=== PATIENT | female | born 1935 | race African-American/Black ===

== ENCOUNTER 2017-09-06 10:00 | Day surgery (SDC) | payer MEDICARE, BC ==
--- NOTE | 2017-09-05 23:28 | Pre-Procedure Note/Attestation ---
Pre-Procedure Note/Attestation Complete Prior to Procedure Planned Procedure: left - Removal of cataract and placement of intraocular lens , left eye Procedure Narrative: Removal of cataract and placement of intraocular lens, left eye Indications for Procedure Pre-Operative Diagnosis: Cataract, combined, left eye Attestation I attest that I discussed the nature of the procedure; its benefits; risks and complications; and alternatives (and the risks and benefits of such alternatives ), prior to the procedure, with the patient (or the patient's legal sales representative printing paper). I attest that, if there was a reasonable possibility of needing a blood transfusion, the patient (or the patient's legal sales representative printing paper) was given the [place] [employer] standardized written summary, pursuant to the [place] Blood Safety Act ([place] Health and Safety Code # 1645, as amended). I attest that I re-evaluated the patient just prior to the surgery and that there has been no change in the patient's H&P, except as documented below: Richard Diggs MD Sep 05, 2017 23:28
[~2017-09-06] VITALS: Ht 154.9 cm; Wt 50.8 kg
[2017-09-06] VITALS (8 sets, daily range): BP systolic 123–150; BP diastolic 51–70
[~2017-09-06 10:00] MED LIST: Pred Forte 1% Opth Susp 1ml LEFT EYE ONE
[2017-09-06] MEDS ORDERED: ZANTAC150 MG ORAL (10:32)
[2017-09-06] MEDS ORDERED: ASPIR 8181 MG ORAL (10:33)
[2017-09-06] MEDS ORDERED: METFORMIN HCL500 M1 ORAL (10:34)
[2017-09-06] MEDS ORDERED: AMLODIPINE BESYL5 MG ORAL (10:35)
[2017-09-06] MEDS ORDERED: LOSARTAN-HCTZ1 EAC2 ORAL (10:36)
[2017-09-06] MEDS ORDERED: STOOL SOFTENER1 EAC3 PO (10:37)
[2017-09-06] MEDS ORDERED: Phenylephrine 10% Opth Soln 5ml ONE (10:44)
[2017-09-06] MEDS ORDERED: Cyclopentolate 1% Opth Sol 2ml ONE (10:44)
[2017-09-06] MEDS ORDERED: Ciprofloxacin Opth Soln 2.5ml ONE (10:44)
[2017-09-06] MEDS ORDERED: Akten 3.5% 1ml Btl ONE (10:44)
[2017-09-06] MEDS ORDERED: Pred Forte 1% Opth Susp 1ml ONE ×2 (10:45→12:12)
[2017-09-06] MEDS ORDERED: Tropicamide 1% Opth 15ml Soln ONE (10:45)
[2017-09-06] MEDS: Cyclopentolate 1% Opth Sol 2ml LEFT EYE SCH ×3 (10:56→11:29)
[2017-09-06] MEDS: Tropicamide 1% Opth 15ml Soln LEFT EYE SCH ×3 (10:56→11:29)
[2017-09-06] MEDS: Phenylephrine 10% Opth Soln 5ml LEFT EYE SCH ×3 (10:56→11:29)
[2017-09-06] MEDS: Ciprofloxacin Opth Soln 2.5ml LEFT EYE SCH ×3 (10:56→11:31)
[2017-09-06] MEDS: Akten 3.5% 1ml Btl LEFT EYE SCH ×3 (10:57→11:31)
[2017-09-06] MEDS ORDERED: EPINEPHrine 1mg/1ml Amp ONE (12:11)
[2017-09-06] MEDS ORDERED: Maxitrol Opth Oint 3.5gm ONE (12:12)
[2017-09-06] MEDS ORDERED: Fluorescein Strips ONE (12:12)
[2017-09-06] MEDS ORDERED: Carbachol 0.01% Op Soln 1.5ml vial ONE (12:12)
[2017-09-06] MEDS ORDERED: Lidocaine 4% Amp ONE (12:12)
[2017-09-06] MEDS ORDERED: Timolol 0.5% Op Soln 2.5ml ONE (12:12)
[2017-09-06] MEDS ORDERED: Lidocaine 1% MPF 10mg/ml 5ml ONE (12:12)
[2017-09-06] MEDS ORDERED: Dexamethasone 4mg/ml vial ONE (12:12)
[2017-09-06] MEDS ORDERED: BSS 500ml btl ONE (12:13)
[2017-09-06] MEDS ORDERED: BSS 15ml BTL ONE (12:13)
[2017-09-06] MEDS ORDERED: Povidone-Iodine 5% opth solution ONE (12:13)
[2017-09-06] MEDS ORDERED: Tetracaine 0.5% Opth 4ml Soln ONE (12:13)
[2017-09-06] MEDS ORDERED: Sodium Hyaluronate 10 mg/ml 0.85ml ONE (12:14)
[2017-09-06] MEDS ORDERED: Sterile Water Irrig 1000ml IRRIG ONE (12:30)
[2017-09-06] MEDS ORDERED: DiphenhydrAMINE 50mg/ml Inj ONE ×3 (12:30→13:43)
[2017-09-06] MEDS ORDERED: NS Irrig 1000ml ONE (12:30)
--- NOTE | 2017-09-06 12:42 | Anethesia Preoperative Eval ---
Anesthesia Pre-op PMH/ROS General Date of Evaluation: Sep 06, 2017 Anesthesiologist: Jose E ASA Score: ASA 2 Mallampati Score Class I : Soft palate, uvula, fauces, pillars visible Class II: Soft palate, uvula, fauces visible Class III: Soft palate, base of uvula visible Class IV: Only hard plate visible Mallampati Classification: Class II Surgeon: Dontae Diagnosis: Left cataract Surgical Procedure: Left cataract extraction with IOL Anesthesia History: none Family History: no anesthesia problems Allergies: Coded Allergies: MEPERIDINE (Verified Allergy, Intermediate, shortness of breath, 09/06/17) CODEINE (Verified Adverse Reaction, Intermediate, "stomach hurts", 09/06/17 ) Medications: see eMAR Past Medical History Cardiovascular: Reports: HTN; Denies: CAD, [place], valve dz, arrhythmia, other Pulmonary: Denies: asthma, COPD, BULMARO, other Gastrointestinal/Genitourinary: Reports: GERD; Denies: CRI, ESRD, other Neurologic/Psychiatric: Denies: dementia, CVA, depression/anxiety, TIA, other Endocrine: Reports: DM; Denies: hypothyroidism, steroids, other HEENT: Denies: cataract (L), cataract (R), glaucoma, [place] DEE-NI' (L), [place] DEE-NI' (R), other Hematology/Immune: Denies: anemia, DVT, bleeding disorder, other Musculoskeletal/Integumentary: Denies: OA, RA, DJD, DDD, edema, other PSxH Narrative: ALEK, appy, keyur Anesthesia Pre-op Phys. Exam Physician Exam Last Vital Signs Date Time Temp Pulse Resp B/P (MAP) Pulse Ox O2 Delivery O2 Flow Rate FiO2 09/06/17 10:58 98.7 63 18 150/70 99 Room Air 98.7 Constitutional: NAD Cardiovascular: RRR Respiratory: CTA Airway Exam Mallampati Score: Class II MO: full ROM: full Anesthesia Pre-op A/P Labs see chart Studies Pre-op Studies: EKG Risk Assessment & Plan Assessment: ASA II Plan: MAC Status Change Before Surgery: No Pre-Antibiotics Drug: N/A IVETTE PRYOR M.D. Sep 06, 2017 12:42
[2017-09-06] MEDS ORDERED: Midazolam 2mg/2ml Inj ONE (12:44)
[2017-09-06] MEDS ORDERED: LR 1000ml 1,000 ML IVLG SCH (12:49)
--- NOTE | 2017-09-06 12:50 | Immediate Post-Op Evaluation ---
Immediate Post-Op Evalulation Immediate Post-Op Evalulation Procedure: Left cataract extraction with IOL Date of Evaluation: Sep 06, 2017 Time of Evaluation: 13:34 IV Fluids: 200 Blood Products: 0 Estimated Blood Loss: 0 Urinary Output: 0 Blood Pressure Systolic: 137 Blood Pressure Diastolic: 57 Pulse Rate: 65 Respiratory Rate: 16 O2 Sat by Pulse Oximetry: 99 Temperature (Fahrenheit): 98.9 Pain Score (1-10): 0 Nausea: No Vomiting: No Complications 0 Patient Status: awake, reacts, patent, none Hydration Status: adequate Drug: N/A IVETTE PRYOR M.D. Sep 06, 2017 12:50
--- NOTE | 2017-09-06 12:51 | 48 Hour Post Anesthesia Eval ---
Post Anesthesia Evaluation Procedure: Left cataract extraction with IOL Date of Evaluation: Sep 06, 2017 Airway: patent Nausea: No Vomiting: No Pain Intensity: 0 Hydration Status: adequate Cardiopulmonary Status: at baseline Mental Status/LOC: patient returned to baseline Post-Anesthesia Complications: 0 Follow-up care needed: ready to discharge IVETTE PRYOR M.D. Sep 06, 2017 12:51
[2017-09-06] MEDS ORDERED: DiphenhydrAMINE 50mg/ml Inj IVP PRN (13:00)
[2017-09-06] MEDS ORDERED: Labetalol 5mg/ml 20ml vial IV PRN (13:00)
--- NOTE | 2017-09-06 13:33 | Discharge Instructions ---
Discharge Instructions Discharge Instructions Follow Up Orders Continue Prednisolone eye drops 1 drop to left eye 4 times a day Ciprofloxacin eye drops 1 drop to left eye 4 times a day Wait five minutes in between eye medications Wear eye shield at all times except to place eye drops Followup in Dr Diggs's office tomorrow For Congestive Heart Failure Reminder Report to your physician any weight gain of 5 pounds or more in one week. Richard Diggs MD Sep 06, 2017 13:32
--- NOTE | 2017-09-06 13:34 | Brief Operative Note ---
Immediate Post Operative Note Operative Note Pre-op Diagnosis: Cataract, combined, left eye Procedure: Phaco PC IOL, OS Use of vision blue for capsular staining Post-op Diagnosis: Combined Cataract, left eye Surgeon: Abram Diggs MD Anesthesiologist: Dr Uribe Anesthesia: local, MAC Specimen: none Complications: none Fluids: as per chart Implant(s) used?: Yes - maggie SA 60 AT 19.5 Richard Diggs MD Sep 06, 2017 13:34
--- NOTE | 2017-09-06 17:45 | Operative Note - Dictated ---
DATE OF OPERATION: 09/06/2017 SURGEON: Richard Diggs M.D. SECURED ENTRANCE MONITOR SURGEON: None. ANESTHESIOLOGIST: Dr. Uribe. ANESTHESIA: Local/standby/monitored anesthesia care. PREOPERATIVE DIAGNOSIS: Combined cataract, left eye. POSTOPERATIVE DIAGNOSIS: Combined cataract, left eye. PROCEDURE: 1. Phacoemulsification of cataract, left eye. 2. Placement of posterior chamber intraocular lens, left eye (model Florencio [id number], power 19.5). 3. Use of VisionBlue for capsular staining. SPECIMENS: None. COMPLICATIONS: None. INDICATIONS FOR SURGERY: The patient has had the painless progressive decrease in the visual acuity in the left eye secondary to cataract. The patient understands the risks of surgery including infection, bleeding, need for further surgery, loss of vision, no improvement in vision, loss of the eye, loss of life, glaucoma, retinal detachment. Understands these risks and elects to proceed with surgery. FINDINGS: The patient had a +3 to 4 anterior subcapsular cataract that was obscuring the view surgery and necessitating the use of VisionBlue for capsular staining. The patient also had a +2 to 3 nuclear sclerotic cataract. OPERATIVE NOTE: After informed consent was obtained, the patient was brought into the operating room, placed in supine position. Cardiac and respiratory monitors were attached. A time-out was performed and all criteria were met and everyone in the room agreed. The left eye was then draped and prepped in a sterile manner for ocular surgery. A lid speculum was placed in the eye. A 1% lidocaine preservative-free was injected at the approximate 2 o'clock limbus. A conjunctival peritomy from approximately 2 o'clock to 3:30 was made and dissected posteriorly. Hemostasis was maintained with bipolar cautery. A 2.4 mm limbal incision was made centered approximately 2:30 dissected anteriorly. Paracentesis was made at approximately 5:30 and Shugarcaine was injected into the anterior chamber followed by air. VisionBlue was then injected for capsular staining and then irrigated out. Healon was injected into the anterior chamber and a 2.6 mm keratome was used to enter the anterior chamber through the limbal incision. An anterior capsulorrhexis was then performed. Hydrodissection and hydrodelineation of the lens was then performed. The lens was then phacoemulsified using divide and conquer four-quadrant technique. Residual cortical material was then aspirated. Healon was injected into the anterior chamber and capsular bag. The lens was taken from its package, placed into the cartridge, and the tip of the cartridge was placed through the limbal incision and the lens was injected into the capsular bag and centered nicely with a Sins[place] hook. Healon was aspirated from the anterior chamber and capsular bag. One 10-0 nylon interrupted suture was placed through the limbal incision. The lens was again re-evaluated and found to have both haptics in optic in the capsular bag and centered in the 9 o'clock to 3 o'clock meridian. The wounds were all checked and found to be watertight. The conjunctiva was then closed with forceps cautery. The lid speculum and drapes were removed from the eye, and drops of ciprofloxacin and Pred Forte and Timoptic 0.5% were applied to the eye followed by Maxitrol ointment and a shield. The patient tolerated the procedure well and left the operating room in awake, alert, and stable condition. Richard Diggs M.D. DR: ELADIA JOB#: [id number] CC:
== END 2017-09-06 16:30 | disposition home or self-care (01) ==
LOC: SUR 10:00
DX: H25.12 Age-related nuclear cataract, left eye (principal); I10 Essential (primary) hypertension; K21.9 Gastro-esophageal reflux disease without esophagitis; E11.9 Type 2 diabetes mellitus without complications; Z90.89 Acquired absence of other organs; Z90.49 Acquired absence of other specified parts of digestive tract
CPT/HCPCS: 66984; 82962; J0171; J1100; J1200; J2250; V2632; 94003; 94150